=== PATIENT | male | born 1970 | race Caucasian/White ===

== ENCOUNTER 2017-04-16 15:29 | Emergency (ER) | payer SELFPAY ==
[2017-04-16 15:38] VITALS: BP 111/70; BMI 22.4
--- NOTE | 2017-04-16 16:30 | RAD ---
HISTORY: Chest pain. Study: Chest one view Comparison: April 09, 2017. Findings: The trachea is midline. The cardiac silhouette is unremarkable. The lungs are clear without focal infiltrate or effusion. The bony thorax is unremarkable. IMPRESSION: 1. No acute cardiopulmonary disease. Reported By:
[2017-04-16 17:03] LABS: BLOOD UREA NITROGEN 14 mg/dL (7-18); CALCIUM 9.2 mg/dL (8.5-10.1); CHLORIDE 104 mmol/L (98-107); COR NA(FOR HYPERGLY) 139 mmol/L (136-145); CREATININE 1.07 mg/dL (0.70-1.30); GLUCOSE 111 mg/dL (65-99); SODIUM 139 mmol/L (136-145); TROPONIN I < 0.02 ng/mL (0-1.5); eGFR BLACK RACES > 60 (>60); eGFR NON BLACK RACES > 60 (>60)
[2017-04-16 17:05] LABS: ALBUMIN 3.5 g/dL (3.4-5.0); ALKALINE PHOSPHATASE 86 Units/L (46-116); CKMB % 1.1 % (<4); CREATINE KINASE 95 Units/L (39-308); CREATINE KINASE MB < 1.0 ng/mL (0-4.0); MAGNESIUM 1.7 mg/dL (1.7-2.9)
[2017-04-16 17:09] LABS: D DIMER < 100 ng/mL (0-400)
[2017-04-16 17:10] LABS: BASOPHILS # (AUTO) 0.3 X10^3/uL (0.0-0.1); BASOPHILS % (AUTO) 3.1 % (0.2-1.0); EOSINOPHILS # (AUTO) 0.3 x10^3/uL (0.0-0.2); EOSINOPHILS % (AUTO) 3.1 % (0.9-2.9); HEMATOCRIT 46.6 % (42.0-54.0); HEMOGLOBIN 16.2 g/dL (13.5-18.0); LYMPHOCYTES # (AUTO) 2.6 X10^3/uL (1.3-2.9); LYMPHOCYTES % (AUTO) 29.6 % (21.0-51.0); MEAN CORPUSCULAR HEMOGLOBIN 31.8 pg (27.0-34.0); MEAN CORPUSCULAR HGB CONC 34.9 g/dL (33.0-35.0); MEAN CORPUSCULAR VOLUME 91.1 fL (80.0-100.0); MONOCYTES # (AUTO) 0.6 x10^3/uL (0.3-0.8); MONOCYTES % (AUTO) 6.9 % (0.0-13.0); NEUTROPHILS % (AUTO) 57.3 % (42.0-75.0); PLATELET COUNT 224 X10^3/uL (150.0-450.0); RED BLOOD COUNT 5.11 X10^6/uL (4.7-6.0); RED CELL DISTRIBUTION WIDTH 13.6 % (11.6-16.5); WHITE BLOOD COUNT 8.8 X10^3/uL (3.6-10.0)
[2017-04-16 17:18] LABS: ALANINE AMINOTRANSFERASE 52 Units/L (12-78); TOTAL PROTEIN 7.7 g/dL (6.4-8.2)
[2017-04-16 17:19] LABS: ASPARTATE AMINO TRANSFERASE 42 Units/L (15-37)
--- NOTE | 2017-04-16 18:07 | DR.GENAD ---
HPI - PCP Primary Care Physician: nfd - Complaint/Symptoms Chief Complaint Doctors Comments: chest pain Chief Complaint:: chest pain since last off and on but today at 130 it was worse. was here on april 09 and was sent to [facility]. patient stated he did take asa at home. - Source History Provided: Family Member - Mode of Arrival Mode of Arrival: Ambulatory - Timing Onset of Chief Complaint: 04/09/17 Came on: Gradually - Duration Duration: Since Onset Duration: Minutes - Severity Severity: Moderate - Associated Signs and Symptoms Associated Signs and Symptoms: none PMH - PMH Past Medical History: Yes Past Medical History: GERD, [place] Past Surgical History: No Surgical History: Unknown Past Surgical History Comment: heart cath on - Family History History of Family Medical Conditions: Yes - Social History Does patient currently use any type of tobacco product: Yes Have you used tobacco products in the last 12 months: Yes Type of Tobacco Use: None Does any household member use tobacco: No Alcohol Use: None Do you use any recreational Drugs:: No Lives With: Family Lives Where: Home - infectious screening In the last 2 months have you had wt loss of >10#?: NO Have you had fever, night sweats or hemotysis?: No Have you traveled outside the country in the last 6 months?: No Isolation: Standard ROS - Review of Systems Constitutional: No Symptoms Reported Eyes: No Symptoms Reported Respiratoy: No Symptoms Reported Cardiovascular: Chest Pain Gastrointestinal/Abdominal: No Symptoms Reported Genitourinary: No Symptoms Reported Neurological: No Symptoms Reported Musculoskeletal: No Symptoms Reported Integumentary: No Symptoms Reported Hematologic/Lymphatic: No Symptoms Reported Endocrine: No Symptoms Reported Psychiatric: No Symptoms Reported All Other Systems: Reviewed and Negative PE - Vital Signs Vitals: Temperature 98.8 F Pulse Rate 72 Respiratory Rate 16 Blood Pressure [Right Arm] 128/84 Blood Pressure 111/70 O2 Sat by Pulse Oximetry 98 - General Limitations: No Limitations General Appearance: Alert, In No Apparent Distress - Head Head Exam: Normal Inspection - ENT Throat Exam: Normal Inspection - Neck Neck Exam: Normal Inspection, Full ROM, Trachea Midline - Chest Chest Inspection: Normal Inspection - Respiratory Respiratory Exam: Normal Lung Sounds Bilat - Cardiovascular Cardiovascular Exam: Regular Rate, Normal Rhythm, Normal Heart Sounds - Abdominal Exam Abdominal Exam: Normal Bowel Sounds - Extremities Extremities Exam: Normal Inspection, Full ROM - Back Back Exam: Normal Inspection, Full ROM - Neurologic Neurological Exam: Alert, Oriented X3, CN II-XII Intact - Psychiatric Psychiatric Exam: Normal Affect - Skin Skin Exam: Warm, Dry, Intact, Normal Color ROR - Labs Reviewed Result Diagrams: 04/16/17 16:33 04/16/17 16:33 Laboratory: WBC 8.8 X10^3/uL (3.6-10.0) 04/16/17 16:33 RBC 5.11 X10^6/uL (4.7-6.0) 04/16/17 16:33 Hgb 16.2 g/dL (13.5-18.0) 04/16/17 16:33 Hct 46.6 % (42.0-54.0) 04/16/17 16:33 MCV 91.1 fL (80.0-100.0) 04/16/17 16:33 MCH 31.8 pg (27.0-34.0) 04/16/17 16:33 MCHC 34.9 g/dL (33.0-35.0) 04/16/17 16:33 RDW 13.6 % (11.6-16.5) 04/16/17 16:33 Plt Count 224 X10^3/uL (150.0-450.0) 04/16/17 16:33 MPV 8.0 fL (7.4-11.0) 04/16/17 16:33 Neut % 57.3 % (42.0-75.0) 04/16/17 16:33 Lymph % 29.6 % (21.0-51.0) 04/16/17 16:33 [place] % 6.9 % (0.0-13.0) 04/16/17 16:33 Eos % 3.1 % (0.9-2.9) H 04/16/17 16:33 Baso % 3.1 % (0.2-1.0) H 04/16/17 16:33 Neut # 5.0 x10^3/uL (2.2-4.8) H 04/16/17 16:33 Lymph # 2.6 X10^3/uL (1.3-2.9) 04/16/17 16:33 [place] # 0.6 x10^3/uL (0.3-0.8) 04/16/17 16:33 Eos # 0.3 x10^3/uL (0.0-0.2) H 04/16/17 16:33 Baso # 0.3 X10^3/uL (0.0-0.1) H 04/16/17 16:33 Absolute Nucleated RBC 0.1 /100WBC 04/16/17 16:33 INR Target Range - 04/16/17 16:33 INR 0.93 (0.8-1.3) 04/16/17 16:33 PTT 27.3 SECONDS (22.9-36.5) 04/16/17 16:33 PTT Comment - 04/16/17 16:33 D-Dimer < 100 ng/mL (0-400) 04/16/17 16:33 Sodium 139 mmol/L (136-145) 04/16/17 16:33 Corrected Sodium 139 mmol/L (136-145) 04/16/17 16:33 Potassium 3.7 mmol/L (3.5-5.1) 04/16/17 16:33 Chloride 104 mmol/L (98-107) 04/16/17 16:33 Carbon Dioxide 24.0 mmol/L (21-32) 04/16/17 16:33 BUN 14 mg/dL (7-18) 04/16/17 16:33 Creatinine 1.07 mg/dL (0.70-1.30) 04/16/17 16:33 Est GFR (MDRD) Af Amer > 60 (>60) 04/16/17 16:33 Est GFR (MDRD) Non-Af > 60 (>60) 04/16/17 16:33 Glucose 111 mg/dL (65-99) H 04/16/17 16:33 Calcium 9.2 mg/dL (8.5-10.1) 04/16/17 16:33 Corrected Calcium TNP 04/16/17 16:33 Magnesium 1.7 mg/dL (1.7-2.9) 04/16/17 16:33 Total Bilirubin 0.50 mg/dL (0.2-1.0) 04/16/17 16:33 AST 42 Units/L (15-37) H 04/16/17 16:33 ALT 52 Units/L (12-78) 04/16/17 16:33 Alkaline Phosphatase 86 Units/L (46-116) 04/16/17 16:33 Creatine Kinase 95 Units/L (39-308) 04/16/17 16:33 CK-MB (CK-2) < 1.0 ng/mL (0-4.0) 04/16/17 16:33 CK/CKMB % Calc 1.1 % (<4) 04/16/17 16:33 Troponin I < 0.02 ng/mL (0-1.5) 04/16/17 16:33 Total Protein 7.7 g/dL (6.4-8.2) 04/16/17 16:33 Albumin 3.5 g/dL (3.4-5.0) 04/16/17 16:33 Globulin 4.2 g/dL (2.5-4.5) 04/16/17 16:33 Albumin/Globulin Ratio 0.8 Ratio (1.1-2.1) L 04/16/17 16:33 - Diagnosis Discharge Problem: Chest pain in adult - Discharge Plan Condition: Stable - Follow ups/Referrals Follow ups/Referrals: NFD,None [Primary Care Provider] - 3 days - Instructions
== END 2017-04-16 18:46 | disposition home or self-care (01) ==
LOC: ER 18:43
DX: R07.89 Other chest pain (principal)
CPT/HCPCS: 36415; 71010; 80053; 82550; 82553; 83735; 84484; 85025; 85378; 85610; 85730; 93005; 93010; 96365; 99282; A4222

== ENCOUNTER 2018-02-11 16:05 | Emergency (ER) | payer SELFPAY ==
[2018-02-11] MEDS ORDERED: DILAUDID INJ IVP ONE (16:14)
[2018-02-11] MEDS ORDERED: ZOFRAN INJ 4 MG VIAL IVP ONE (16:14)
[2018-02-11] MEDS ORDERED: ZOFRAN INJ 4 MG VIAL ONE (16:21)
[2018-02-11] MEDS ORDERED: DILAUDID INJ ONE (16:22)
[2018-02-11 16:24] VITALS: BP 139/86; BMI 24.4
--- NOTE | 2018-02-11 16:33 | DR.ABDMALE ---
HPI - Time seen Time seen: 16:18 - PCP Primary Care Physician: NFD - Complaint Chief Complaint Doctors Comments: RLQ pain as noted below. He describes this as sharp in nature. he has had no fever or chills. There is no exacerbating or relieving fators. He has no dysuria or hematuria. The RLQ pain radiates upwards. Chief Complaint:: PT C/O RLQ PAIN THAT STARTED AROUND 1130 THIS AM. PT STATES THE PAIN STARTED ALL OF SUDDEN WITH DIZZINESS AND NAUSEA. - Reviewed Nurses Notes Review: Yes - Mode of arrival Mode of Arrival: Ambulatory - Timing Onset of Chief Complaint: 02/11/18 PMH - PMH Past Medical History: Yes Past Medical History: Dyslipidemia, GERD, Kidney Stones, [place] Past Surgical History: Yes Surgical History: Lithotripsy, Other (Back surgery) - Family History History of Family Medical Conditions: No - Social History Does patient currently use any type of tobacco product: Yes Have you used tobacco products in the last 12 months: Yes Type of Tobacco Use: Cigarettes Does any household member use tobacco: Yes Alcohol Use: None Do you use any recreational Drugs:: No Lives With: Family Lives Where: Home - infectious screening In the last 2 months have you had wt loss of >10#?: NO Have you had fever, night sweats or hemotysis?: No Have you traveled outside the country in the last 6 months?: No Isolation: Standard ROS - Review of Systems Constitutional: No Symptoms Reported Eyes: No Symptoms Reported ENTM: No Symptoms Reported Respiratoy: No Symptoms Reported Cardiovascular: No Symptoms Reported Gastrointestinal/Abdominal: Abdominal Pain (RLQ), Nausea Genitourinary: No Symptoms Reported Neurological: No Symptoms Reported Musculoskeletal: No Symptoms Reported Integumentary: No Symptoms Reported Hematologic/Lymphatic: No Symptoms Reported Endocrine: No Symptoms Reported Psychiatric: No Symptoms Reported All Other Systems: Reviewed and Negative PE - Vital Signs Vital Signs: Temp Pulse Resp BP BP Pulse Ox 02/11/18 16:07 97.9 F 96 H 22 139/86 99 04/16/17 15:30 111/70 04/09/17 06:39 128/84 - General Limitations: No Limitations General Appearance: Alert, In No Apparent Distress - Head Head Exam: Normal Inspection - Eyes Eye exam: Normal Appearance - ENT ENT Exam: Normal Oropharynx, Normal External Ear Exam, Mucous Membranes Moist, Other (decaying theet + caries- multiple.) - Neck Neck Exam: Normal Inspection - Chest Chest Inspection: Normal Inspection - Respiratory Respiratory Exam: Normal Lung Sounds Bilat - Cardiovascular Cardiovascular Exam: Regular Rate, Normal Rhythm, +S1, +S2 - Abdominal Exam Abdominal Exam: Normal Inspection, Normal Bowel Sounds, Soft Abdominal Tenderness: RUQ, RLQ, Epigastrium - Rectal Rectal Exam: Deferred - Back Back Exam: Normal Inspection - Extremeties Extremities Exam: Normal Inspection - Neurologic Neurological Exam: Alert, Oriented X3 - Psychiatric Psychiatric Exam: Normal Affect, Normal Mood - Skin Skin Exam: Warm, Dry, Intact, Normal Color Course - Reevaluation 1st: Improved - Education/Counseling Education/Counseling: Patient, Family, Education, Counseling Educated On: Treatment, Diagnosis, Prognosis, Needs for Follow Up ROR - Labs Reviewed Result Diagrams: 02/11/18 16:20 02/11/18 16:20 Laboratory: WBC 8.5 X10^3/uL (3.6-10.0) 02/11/18 16:20 RBC 4.89 X10^6/uL (4.7-6.0) 02/11/18 16:20 Hgb 15.7 g/dL (13.5-18.0) 02/11/18 16:20 Hct 44.4 % (42.0-54.0) 02/11/18 16:20 MCV 90.7 fL (80.0-100.0) 02/11/18 16:20 MCH 32.0 pg (27.0-34.0) 02/11/18 16:20 MCHC 35.3 g/dL (33.0-35.0) H 02/11/18 16:20 RDW 13.5 % (11.6-16.5) 02/11/18 16:20 Plt Count 258 X10^3/uL (150.0-450.0) 02/11/18 16:20 MPV 8.2 fL (7.4-11.0) 02/11/18 16:20 Neut % (Auto) 59.6 % (42.0-75.0) 02/11/18 16:20 Lymph % (Auto) 26.8 % (21.0-51.0) 02/11/18 16:20 [place] % (Auto) 8.5 % (0.0-13.0) 02/11/18 16:20 Eos % (Auto) 3.3 % (0.9-2.9) H 02/11/18 16:20 Baso % (Auto) 1.8 % (0.2-1.0) H 02/11/18 16:20 Neut # (Auto) 5.1 x10^3/uL (2.2-4.8) H 02/11/18 16:20 Lymph # (Auto) 2.3 X10^3/uL (1.3-2.9) 02/11/18 16:20 [place] # (Auto) 0.7 x10^3/uL (0.3-0.8) 02/11/18 16:20 Eos # (Auto) 0.3 x10^3/uL (0.0-0.2) H 02/11/18 16:20 Baso # (Auto) 0.2 X10^3/uL (0.0-0.1) H 02/11/18 16:20 Absolute Nucleated RBC 0.0 /100WBC 02/11/18 16:20 Sodium 141 mmol/L (136-145) 02/11/18 16:20 Corrected Sodium TNP 02/11/18 16:20 Potassium 3.9 mmol/L (3.5-5.1) 02/11/18 16:20 Chloride 105 mmol/L (98-107) 02/11/18 16:20 Carbon Dioxide 26.2 mmol/L (21-32) 02/11/18 16:20 BUN 11 mg/dL (7-18) 02/11/18 16:20 Creatinine 1.00 mg/dL (0.70-1.30) 02/11/18 16:20 Est GFR (MDRD) Af Amer > 60 (>60) 02/11/18 16:20 Est GFR (MDRD) Non-Af > 60 (>60) 02/11/18 16:20 Glucose 100 mg/dL (65-99) H 02/11/18 16:20 Calcium 8.8 mg/dL (8.5-10.1) 02/11/18 16:20 Corrected Calcium TNP 02/11/18 16:20 Total Bilirubin 0.30 mg/dL (0.2-1.0) 02/11/18 16:20 AST 25 Units/L (15-37) 02/11/18 16:20 ALT 41 Units/L (12-78) 02/11/18 16:20 Alkaline Phosphatase 91 Units/L (46-116) 02/11/18 16:20 Total Protein 7.6 g/dL (6.4-8.2) 02/11/18 16:20 Albumin 3.7 g/dL (3.4-5.0) 02/11/18 16:20 Globulin 3.9 g/dL (2.5-4.5) 02/11/18 16:20 Albumin/Globulin Ratio 0.9 Ratio (1.1-2.1) L 02/11/18 16:20 Amylase 85 Units/L (25-115) 02/11/18 16:20 Lipase 322 Units/L (73-393) 02/11/18 16:20 Specimen Type Random urine 02/11/18 16:57 Urine Color Yellow (YELLOW) 02/11/18 16:57 Urine Appearance Hazy (CLEAR) 02/11/18 16:57 Urine pH 6.5 (5.0 - 8.0) 02/11/18 16:57 Ur Specific [place] 1.015 (1.000-1.030) 02/11/18 16:57 Urine Protein 2+ (NEGATIVE) 02/11/18 16:57 Urine Glucose (UA) Negative (NEGATIVE) 02/11/18 16:57 Urine Ketones Negative (NEGATIVE) 02/11/18 16:57 Urine Occult Blood 5+ (NEGATIVE) 02/11/18 16:57 Urine Nitrite Negative (NEGATIVE) 02/11/18 16:57 Urine Bilirubin Negative (NEGATIVE) 02/11/18 16:57 Urine Urobilinogen 1+ (NORMAL) 02/11/18 16:57 Ur Leukocyte Esterase 1+ (NEGATIVE) 02/11/18 16:57 Urine RBC 30-50 /HPF (NONE SEEN) 02/11/18 16:57 Urine WBC 3-5 /HPF (NONE SEEN) 02/11/18 16:57 Ur Squamous Epith Cells Negative /HPF (NEGATIVE) 02/11/18 16:57 Urine Bacteria Negative /HPF (NEGATIVE) 02/11/18 16:57 Urine Mucus Moderate /HPF (NEGATIVE) 02/11/18 16:57 Ur Culture Indicated? No/not indicated 02/11/18 16:57 - Diagnosis Discharge Problem: Gastritis, Microscopic hematuria, Renal colic on right side - Discharge Plan Disposition: 01 HOME, SELF-CARE Condition: Stable - Follow ups/Referrals Follow ups/Referrals: NFD,None [Primary Care Provider] - 3 days - Instructions Instructions: Renal Colic, [id number], Gastritis, Adult, [id number]
[2018-02-11 16:43] LABS: ALANINE AMINOTRANSFERASE 41 Units/L (12-78); ALBUMIN 3.7 g/dL (3.4-5.0); ALKALINE PHOSPHATASE 91 Units/L (46-116); AMYLASE 85 Units/L (25-115); ASPARTATE AMINO TRANSFERASE 25 Units/L (15-37); BLOOD UREA NITROGEN 11 mg/dL (7-18); CALCIUM 8.8 mg/dL (8.5-10.1); CARBON DIOXIDE 26.2 mmol/L (21-32); CHLORIDE 105 mmol/L (98-107); LIPASE 322 Units/L (73-393); SODIUM 141 mmol/L (136-145); TOTAL PROTEIN 7.6 g/dL (6.4-8.2); eGFR BLACK RACES > 60 (>60); eGFR NON BLACK RACES > 60 (>60)
[2018-02-11 16:44] LABS: BASOPHILS # (AUTO) 0.2 X10^3/uL (0.0-0.1); BASOPHILS % (AUTO) 1.8 % (0.2-1.0); EOSINOPHILS # (AUTO) 0.3 x10^3/uL (0.0-0.2); EOSINOPHILS % (AUTO) 3.3 % (0.9-2.9); HEMATOCRIT 44.4 % (42.0-54.0); HEMOGLOBIN 15.7 g/dL (13.5-18.0); LYMPHOCYTES # (AUTO) 2.3 X10^3/uL (1.3-2.9); LYMPHOCYTES % (AUTO) 26.8 % (21.0-51.0); MEAN CORPUSCULAR HGB CONC 35.3 g/dL (33.0-35.0); MEAN CORPUSCULAR VOLUME 90.7 fL (80.0-100.0); MEAN PLATELET VOLUME 8.2 fL (7.4-11.0); MONOCYTES # (AUTO) 0.7 x10^3/uL (0.3-0.8); MONOCYTES % (AUTO) 8.5 % (0.0-13.0); NEUTROPHILS # (AUTO) 5.1 x10^3/uL (2.2-4.8); NEUTROPHILS % (AUTO) 59.6 % (42.0-75.0); PLATELET COUNT 258 X10^3/uL (150.0-450.0); RED BLOOD COUNT 4.89 X10^6/uL (4.7-6.0); RED CELL DISTRIBUTION WIDTH 13.5 % (11.6-16.5); WHITE BLOOD COUNT 8.5 X10^3/uL (3.6-10.0)
[2018-02-11 17:05] LABS: BILIRUBIN,URINE NEGATIVE (NEGATIVE); BLOOD/HEMOGLOBIN,URINE 5+ (NEGATIVE); GLUCOSE, URINE NEGATIVE (NEGATIVE); KETONES,URINE NEGATIVE (NEGATIVE); LEUKOCYTE ESTERASE ,URINE 1+ (NEGATIVE); NITRITES,URINE NEGATIVE (NEGATIVE); PH,URINE 6.5 (5.0 - 8.0); PROTEIN,URINE 2+ (NEGATIVE); UROBILINOGEN,URINE 1+ (NORMAL)
[2018-02-11 17:07] LABS: APPEARANCE,URINE HAZY (CLEAR); COLOR,URINE YELLOW (YELLOW)
[2018-02-11 17:12] LABS: RBC,URINE 30-50 /HPF (NONE SEEN); SQUAMOUS EPITHELIAL CELL,UR NEGATIVE /HPF (NEGATIVE)
[2018-02-11 17:13] LABS: BACTERIA,URINE NEGATIVE /HPF (NEGATIVE); MUCUS,URINE MODERATE /HPF (NEGATIVE)
[2018-02-11] MEDS ORDERED: NS 100 ML IV 100 ML IV ONE (18:16)
--- NOTE | 2018-02-11 18:49 | CT ---
HISTORY: Right lower quadrant pain with nausea, previous history of kidney stones Study: CT abdomen and pelvis with and without contrast Comparison: None Technique: Multiple axial images of the abdomen and pelvis were obtained from the lung bases to the pubic symphy sis without the administration of IV contrast. Findings: Atelectasis is seen within the visualized lungs. Diffuse decreased attenuation throughout the liver s uggests fatty infiltration. Correlate clinically as other causes of hepatic disease may produce a sim ilar appearance. The spleen, pancreas, adrenals, kidneys are unremarkable in appearance. No CT eviden ce of hydronephrosis is identified. Atherosclerotic changes are seen within the visualized aorta. The stomach demonstrates filling defects and a heterogeneous appearance possibly representing non digest ed food stuffs. Correlate clinically. The appendix is grossly unremarkable. Images demonstrate a thic kened appearance of the gastroesophageal junction. There is questionable mild wall thickening involvi ng the transverse and descending colon which may reflect lack of distention however colitis may produ ce a similar appearance. Correlate clinically. The urinary bladder is not well distended but otherwis e grossly unremarkable. The prostate is somewhat heterogeneous in appearance. IMPRESSION: Mild distention of the stomach with suspected non digested food stuffs. Correlate clinically. Thickened appearance of the gastroesophageal junction. Correlation with endoscopy may be helpful as c linically indicated. Questionable mild colonic wall thickening as discussed above. Hepatic steatosis. Reported By:
== END 2018-02-11 19:35 | disposition home or self-care (01) ==
LOC: ER 16:09
DX: K76.0 Fatty (change of) liver, not elsewhere classified (principal); R10.31 Right lower quadrant pain
CPT/HCPCS: 36415; 74178; 80053; 81001; 82150; 83690; 85025; 96365; 96374; 96375; 99283; 99284; A4222; J1170; J2405

== ENCOUNTER 2018-03-14 22:21 | Emergency (ER) | payer SELFPAY ==
[2018-03-14 22:33] VITALS: BP 120/69; BMI 26.6
--- NOTE | 2018-03-19 12:23 | DR.GENAD ---
HPI - PCP Primary Care Physician: OLIVIER - Complaint/Symptoms Chief Complaint:: Pain in the middle of his stomach that radiates to his back. Self Treatment fo Chief Complaint: Pain Patch, Ibuprofen and Phenergan - Source History Provided: Patient - Mode of Arrival Mode of Arrival: Ambulatory - Timing Onset of Chief Complaint: 03/11/18 PMH - PMH Past Medical History: Yes Past Medical History: Dyslipidemia, GERD, Kidney Stones, [place] Past Medical History Comment: Kidney Stones Past Surgical History: Yes Surgical History: Lithotripsy - Family History History of Family Medical Conditions: Yes Family Medical History: Diabetes Mellitus, Cancer, Heart Failure, Hypertension - Social History Does patient currently use any type of tobacco product: Yes Have you used tobacco products in the last 12 months: Yes Type of Tobacco Use: Cigarettes How many years tobacco product used: 43 Does any household member use tobacco: No Alcohol Use: None Do you use any recreational Drugs:: No Lives With: Spouse Lives Where: Home - infectious screening In the last 2 months have you had wt loss of >10#?: NO Have you had fever, night sweats or hemotysis?: No Have you traveled outside the country in the last 6 months?: No Isolation: Standard PE - Vital Signs Vitals: Temperature 98.2 F Pulse Rate 75 Respiratory Rate 18 Blood Pressure [Right Arm] 128/84 Blood Pressure 120/69 O2 Sat by Pulse Oximetry 95 - Discharge Plan Disposition: LWBS After Triage Condition: Stable - Follow ups/Referrals Follow ups/Referrals: OLIVIER,None [Primary Care Provider] - 3 days - Instructions
== END 2018-03-14 23:22 | disposition left against medical advice (07) ==
LOC: ER 22:21
DX: R10.84 Generalized abdominal pain (principal)
CPT/HCPCS: 99281

== ENCOUNTER 2018-04-03 15:18 | Emergency (ER) | payer SELFPAY ==
[2018-04-03 15:26] VITALS: BP 114/59; BMI 24.3
[2018-04-03] MEDS ORDERED: TORADOL 60 MG VIAL IM ONE (16:27)
[2018-04-03] MEDS ORDERED: DECADRON INJ IM ONE (16:27)
[2018-04-03] MEDS ORDERED: ROCEPHIN VIAL 1 GM IM ONE (16:27)
--- NOTE | 2018-04-03 16:29 | DR.GENAD ---
HPI - PCP Primary Care Physician: NFD - HPI Comment HPI Comment: GETTING WORSE. PATIENT SAID PAIN IS SEVERE. NO FEVER. MEDS TAKEN AT HOME NOT HELPING PAIN. - Complaint/Symptoms Chief Complaint Doctors Comments: TOOTHACHE AND SWOLLEN PAINFULL RT JAW TIMES 3 DAYS. Chief Complaint:: Pt has c/o right mouth pain. States he has had an abcess on right top and bottom of jaw for about 3 days. Has been unable to find a dentist to see. Self Treatment fo Chief Complaint: Clove Oils, Oral Gel, Tylenol and Aleve - Nurses notes reviewed Nurses Notes Review: Yes - Source History Provided: Patient - Mode of Arrival Mode of Arrival: Ambulatory - Timing Onset of Chief Complaint: 03/31/18 Came on: Suddenly - Duration Duration: Constant Duration: Days - Severity Severity: Moderate PMH - PMH Past Medical History: No Past Medical History: Dyslipidemia, GERD, Kidney Stones, [place] Past Surgical History: Yes Surgical History: Lithotripsy Past Surgical History Comment: lithotripsy, right eye surgery - Family History History of Family Medical Conditions: Yes Family Medical History: Diabetes Mellitus, [place], Coronary Artery Disease - Social History Does patient currently use any type of tobacco product: No Have you used tobacco products in the last 12 months: No Type of Tobacco Use: Cigarettes Does any household member use tobacco: No Alcohol Use: None Do you use any recreational Drugs:: No Lives With: Family Lives Where: Home - infectious screening In the last 2 months have you had wt loss of >10#?: NO Have you had fever, night sweats or hemotysis?: No Have you traveled outside the country in the last 6 months?: No Isolation: Standard ROS - Review of Systems Constitutional: No Symptoms Reported Eyes: No Symptoms Reported ENTM: Mouth Pain. negative: Loose Teeth (TOOTHACHE WITH SWOLLEN RT JAW.) Respiratoy: No Symptoms Reported Cardiovascular: No Symptoms Reported Gastrointestinal/Abdominal: No Symptoms Reported Genitourinary: No Symptoms Reported Neurological: No Symptoms Reported Musculoskeletal: No Symptoms Reported Integumentary: No Symptoms Reported Hematologic/Lymphatic: No Symptoms Reported Endocrine: No Symptoms Reported All Other Systems: Reviewed and Negative PE - Vital Signs Vitals: Temperature 97.1 F Pulse Rate 75 Respiratory Rate 20 Blood Pressure [Right Arm] 128/84 Blood Pressure 114/59 O2 Sat by Pulse Oximetry 98 - General Limitations: No Limitations General Appearance: Alert - Head Head Exam: Normal Inspection - Eyes Eye exam: Normal Appearance - ENT ENT Exam: Normal External Ear Exam TM/Canal Exam: Bilateral Normal Nose Exam: Normal Nose Exam Mouth Exam: Other (RT JAW SWOLLEN AND TENDER. ). negative: Trismus, Tongue Elevation (RIGHT UPPER AND LOWER MOLARS TENDER.GUM INFLAME.) Throat Exam: Normal Inspection - Neck Neck Exam: Trachea Midline - Chest Chest Inspection: Symmetric Chest Wall Rise - Respiratory Respiratory Exam: Normal Lung Sounds Bilat Respiratory Exam: Bilateral Clear to Auscultation - Cardiovascular Cardiovascular Exam: Regular Rate, Normal Rhythm, Normal Heart Sounds - Abdominal Exam Abdominal Exam: Normal Inspection - Extremities Extremities Exam: Normal Inspection - Back Back Exam: Normal Inspection - Neurologic Neurological Exam: Alert, Oriented X3 - Psychiatric Psychiatric Exam: Normal Affect, Normal Mood - Skin Skin Exam: Normal Color MDM - Differential Diagnosis Differential Diagnosis: GINGIVITIS, DENTAL PAIN, DENTAL ABSCESS. Course - Treatment Treatment: SEE ORDERS. - Education/Counseling Education/Counseling: Patient, Family, Education Educated On: Treatment, Diagnosis, Needs for Follow Up - Diagnosis Discharge Problem: Dental abscess, Gingivitis - Discharge Plan Disposition: 01 HOME, SELF-CARE Condition: Stable Prescriptions: Amoxicillin [Amoxil 875 mg] 875 mg PO Q12H #20 tab Ibuprofen [MOTRIN TAB 800 MG *] 800 mg PO Q8H PRN #30 tab PRN Reason: Pain/Inflammation Tramadol HCl 50 mg PO Q8H PRN #15 tablet PRN Reason: - Follow ups/Referrals Follow ups/Referrals: NFD,None [Primary Care Provider] - 3 days - Instructions Instructions: Gingivitis, [id number], Dental Abscess, [id number] Additional Instructions: RETURN TO ED IF WORSE. FOLLOW UP WITH DENTIST OF CHOICE SOON POSSIBLE
[2018-04-03] MEDS ORDERED: TORADOL 60 MG VIAL ONE (16:32)
[2018-04-03] MEDS ORDERED: DECADRON INJ ONE (16:32)
[2018-04-03] MEDS ORDERED: ROCEPHIN VIAL 1 GM ONE (16:33)
== END 2018-04-03 17:39 | disposition home or self-care (01) ==
LOC: ER 15:41
DX: K04.7 Periapical abscess without sinus (principal); K05.10 Chronic gingivitis, plaque induced
CPT/HCPCS: 96372; 99282; J0696; J1100; J1885